=== PATIENT | female | born 1935 | race Caucasian/White ===

== ENCOUNTER 2021-11-22 13:00 | Outpatient (CLI) | payer MEDICARE, OTHER, SELFPAY | END 2021-11-22 13:01 | disposition home or self-care (01) | LOC: SLEEP 11-23 13:01 | PROVIDERS: Family Provider Family Medicine; PCP Family Medicine; Visit Provider Clinical Nurse Specialist Adult Health | DX: J44.9 Chronic obstructive pulmonary disease, unspecified (principal) | CPT/HCPCS: 94762 ==

== ENCOUNTER 2021-12-15 14:29 | Outpatient (CLI) | payer MEDICARE, OTHER, SELFPAY ==
--- NOTE | 2021-12-15 14:46 | XR_ITS ---
WS: [id number] Right shoulder, 3 views, 12/15/2021 Clinical Data: PAIN IN R SHOULDER Comparison: None. Findings: No fractures or dislocations are seen. The AC joint is normal. The adjacent right clavicle, right sca pula and ribs are normal. The soft tissues are unremarkable. There is minimal irregularity of the greater tuberosity. 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
== END 2021-12-15 14:30 | disposition home or self-care (01) ==
PROVIDERS: Family Provider Family Medicine; PCP Family Medicine; Visit Provider Family Medicine
DX: M19.011 Primary osteoarthritis, right shoulder (principal)
CPT/HCPCS: 73030

== ENCOUNTER 2022-01-03 10:04 | Outpatient (CLI) | payer MEDICARE, OTHER, SELFPAY ==
--- NOTE | 2022-01-03 14:00 | PFTS_ITS ---
Date of Study:01/03/22 Date of Dictation:01/06/2022 MECHANICS: Postbronchodilator forced vital capacity (FVC) is reduced. Postbronchodilator forced expiratory volume in one second (FEV1) is severely reduced 42% FEV1/FVC is reduced. There is significant response to bronchodilators. FLOW VOLUME LOOP: Sloping of expiratory limb suggestive of severe airflow obstruction . LUNG VOLUMES: Not measured DIFFUSING CAPACITY FOR CARBON MONOXIDE: Not measured . INTERPRETATION: The prebronchodilator spirometry consistent with severe airflow obstruction which improved to moderate obstruction with bronchodilators. To further characterize-repeat pulmonary function test with lung volumes and gas transfer measurement. Please correlate clinically. MTDD
== END 2022-01-03 10:05 | disposition home or self-care (01) ==
PROVIDERS: PCP Family Medicine; Visit Provider Clinical Nurse Specialist Adult Health
DX: J44.9 Chronic obstructive pulmonary disease, unspecified (principal)
CPT/HCPCS: 94060; J7611

== ENCOUNTER 2022-05-30 09:15 | Outpatient (CLI) | payer MEDICARE, OTHER, SELFPAY ==
--- NOTE | 2022-05-30 09:24 | XR_ITS ---
WS: [id number] Exam: XR chest 2V* [id number] Date/Time of Exam: 05/30/2022 9:24 AM Reason For Exam: dyspnea/ cp Comparison 08/30/2007. The lungs are hyperinflated and clear. Normal cardiomediastinal silhouette. No pleural effusions. Ol d L1 compression fracture. XR/XR chest 2V* [id number] IMPRESSION: 1. Pulmonary hyperinflation which may indicate COPD. No acute cardiopulmonary f inding.
== END 2022-05-30 09:16 | disposition home or self-care (01) ==
LOC: RAD 09:18
PROVIDERS: PCP Family Medicine; Visit Provider Family Medicine
DX: R07.9 Chest pain, unspecified (principal); R06.00 Dyspnea, unspecified
CPT/HCPCS: 71046; 80053; 83880; 85025

== ENCOUNTER → 2022-07-13 10:44 | Outpatient (BNVA) | payer MEDICARE, OTHER, SELFPAY | PROVIDERS: PCP Family Medicine; Visit Provider Family Medicine | DX: R53.83 Other fatigue (principal); J44.9 Chronic obstructive pulmonary disease, unspecified | CPT/HCPCS: 80053; 84443; 85025; 86140 ==

== ENCOUNTER 2022-09-14 12:31 | Emergency (ER) | payer MEDICARE, OTHER, SELFPAY ==
[2022-09-14 12:39] VITALS: BP 98/59; PULSE 98; RESP 28; TEMP 36.5; O2SAT 99; BMI 23.8
--- NOTE | 2022-09-14 12:51 | XRR_ITS ---
PROCEDURE INFORMATION: Exam: XR Chest Exam date and time: 09/14/2022 12:59 PM Age: 86 years old Clinical indication: Pain; Angina pectoris; Additional info: Chest pain TECHNIQUE: Imaging protocol: Radiologic exam of the chest. Views: 1 view. COMPARISON: CR XR chest 2V* [id number] 05/30/2022 9:25 AM FINDINGS: Lungs: Unremarkable. No consolidation. Pleural spaces: Unremarkable. No pleural effusion. No pneumothorax. Heart/Mediastinum: Unremarkable. No cardiomegaly. Bones/joints: There is a chronic rib fracture in the right 8th rib this finding was seen on prior examination and appears similar XR/XR chest 1V portable [id number] IMPRESSION: No acute findings. Chronic right rib fracture
--- NOTE | 2022-09-14 12:51 | ECG_ITS ---
[facility] Test Date: 2022-09-14 Pat Name: Emily Pratt Department: Room: Gender: Female Shipping Receiving Manager: : 1935 Requested By: Dennis Li Order Number: [id number] Dillon MD: Shahla Watkins M.D. Measurements Intervals [place] Rate: 84 P: 66 ME: 112 QRS: 80 QRSD: 90 T: 79 QT: 365 QTc: 433 Interpretive Statements SINUS RHYTHM WITH SHORT ME INTERVAL MODERATE ST DEPRESSION [0.05+ mV ST DEPRESSION] INTERPRETATION BASED ON A DEFAULT AGE OF 40 YEARS No previous ECG available for comparison Electronically Signed On 09-14-2022 20:42:29 SURGERY SCHEDULER by Shahla Watkins M.D. [email or web address])/[id number] f
--- NOTE | 2022-09-14 13:38 | W.ED.CHESTPA ---
HPI - Chest Pain General: Chief Complaint: Chest Pain Stated Complaint: chest pain Time Seen by Provider: 09/14/22 12:46 Source: patient Mode of arrival: ambulatory History of Present Illness: 86-year-old female presents emergency room complaining of shortness of breath and chest discomfort that she has had for several months. It seems to be getting worse recently. She has not noticed anything that exacerbates or relieves. Patient readily admits she has significant amount of anxiety. Diaphoresis nausea vomiting or diarrhea associated with no productive cough. MD complaint: chest pain Onset (ago): month(s) Timing of current episode: episodic Prior episodes: Yes Pain location: substernal Pain radiation: none Quality: aching and heaviness Relieving factors: nothing Exacerbating factors: nothing Associated symptoms: Deny abdominal pain, diaphoresis, dyspnea, fever(s), leg edema, nausea, palpitations, sense of impending doom, syncope or vomiting Treatment prior to arrival: none Review of Systems Const: Denies: fever(s), chills, fatigue, malaise or diaphoresis ENMT: Denies: throat pain, ear or mastoid pain, nasal discharge or nasal congestion Card: Reports: chest pain; Denies: palpitations, irregular heart rhythm, edema, swelling of feet/ankles or syncope Resp: Denies: dyspnea GI: Denies: abdominal pain, nausea or vomiting : Denies: flank pain, difficulty voiding, dysuria, urinary frequency or urinary urgency Skin/Breast: Denies: rash or pruritus PFS ED PFSH: Medical History COPD (chronic obstructive pulmonary disease) Fatigue Osteoarthritis of right shoulder Rotator cuff arthropathy of right shoulder Physical Exam Const: GENERAL APPEARANCE: cooperative and comfortable ORIENTATION/CONSCIOUSNESS: Yes awake, Yes oriented to person, Yes oriented to place and Yes oriented to time HENMT: COMMON NORMALS: normocephalic and atraumatic HEAD & SCALP: normocephalic and atraumatic Resp: COMMON NORMALS: normal respiratory effort, No retractions, No use of accessory muscles and clear to auscultation bilaterally AUSCULTATION: clear to auscultation bilaterally Cardio: COMMON NORMALS: regular rate, regular rhythm and No murmurs present (Cardio) RATE: regular rate RHYTHM: regular rhythm GI: COMMON NORMALS: Soft to palpation and No hepatosplenomegaly present AUSCULTATION: Yes normoactive bowel sounds PALPATION: Yes Soft to palpation, No Tenderness to palpation present (GI), No Guarding due to palpation present (GI) and Yes No hepatosplenomegaly present Extremity: COMMON NORMALS: normal to inspection, capillary refill normal, no clubbing, cyanosis or edema, no calf tenderness and no pedal edema Neuro: SENSORIUM/ORIENTATION: Yes oriented to person, Yes oriented to place and Yes oriented to time Skin: COMMON NORMALS: no rashes or lesions noted GENERAL SKIN EXAM: no rashes or lesions noted Course Vital Signs: Vital signs: Vital Signs Temperature 97.7 F 09/14/22 12:39 Pulse Rate 61 09/14/22 14:34 Respiratory Rate 17 09/14/22 15:31 Blood Pressure 153/57 09/14/22 15:31 Pulse Oximetry 92 09/14/22 15:31 Oxygen Delivery Me thod 09/14/22 15:31 MDM - Chest Pain Medical Decision Making EKG and cardiac enzymes are negative. Patient tells me that she has had 2 stress test in the last 4 years both of which were negative I do not see any documentation of it in her chart but may have been at another facility. In either event when I talked to her about follow-up from this visit we had advised her to get a Lexiscan sestamibi stress test. She she states due to her age and her previous experience these test she does not want to have these done. I would recommend that she take a baby aspirin daily and if she has further symptoms follow-up with Dr. Naylor. I also did start her on pantoprazole 40 mg daily Medical Records I reviewed the patient's medical records. Lab Data I reviewed the patient's lab results. 09/14/22 14:18 09/14/22 14:18 Radiology Impressions Chest X-Ray 09/14/22 12:51 IMPRESSION: No acute findings. Chronic right rib fracture Laboratory Results WBC 6.6 10^3/uL (4.0-10.0) 09/14/22 14:18 RBC 3.38 10^6/uL (4.1-5.3) L 09/14/22 14:18 Hgb 11.4 g/dL (11.5-15.3) L 09/14/22 14:18 Hct 33.6 % (37.0-47.0) L 09/14/22 14:18 MCV 99.4 fl (81-99) H 09/14/22 14:18 MCH 33.7 pg (28.0-34.0) 09/14/22 14:18 MCHC 33.9 g/dL (30.0-36.0) 09/14/22 14:18 RDW 12.1 % (12.1-15.1) 09/14/22 14:18 Plt Count 278 10^3/cmm (130-400) 09/14/22 14:18 MPV 10.1 fL (7.4-10.4) 09/14/22 14:18 Neut % (Auto) 74.4 % 09/14/22 14:18 Lymph % (Auto) 11.9 % 09/14/22 14:18 [place] % (Auto) 11.3 % 09/14/22 14:18 Eos % (Auto) 1.2 % 09/14/22 14:18 Baso % (Auto) 0.9 % 09/14/22 14:18 Neut # (Auto) 4.93 10^3/uL (1.8-7.7) 09/14/22 14:18 Lymph # (Auto) 0.8 10^3/uL (0.8-4.8) 09/14/22 14:18 [place] # (Auto) 0.8 10^3/uL (0.2-0.9) 09/14/22 14:18 Eos # (Auto) 0.1 10^3/uL (0.0-0.8) 09/14/22 14:18 Baso # (Auto) 0.1 10^3/uL (0.0-0.1) 09/14/22 14:18 Nucleated RBC % (auto) 0 % 09/14/22 14:18 Nucleated RBCs # 0.0 /100WBC 09/14/22 14:18 Sodium 133 mmol/L (136-145) L 09/14/22 14:18 Potassium 4.4 mmol/L (3.5-5.1) 09/14/22 14:18 Chloride 96 mmol/L (98-107) L 09/14/22 14:18 Carbon Dioxide 28 mmol/L (22-29) 09/14/22 14:18 Anion Gap 13.4 (5-19) 09/14/22 14:18 BUN 18 mg/dL (8-23) 09/14/22 14:18 Creatinine 1.0 mg/dL (0.5-0.9) H 09/14/22 14:18 GFR Calculation Not Reportable 09/14/22 14:18 Glucose 100 mg/dL (65-115) 09/14/22 14:18 Calculated Osmolality 278 mOsm/kg (285-295) L 09/14/22 14:18 Calcium 8.9 mg/dL (8.5-10.5) 09/14/22 14:18 Total Bilirubin 0.6 mg/dL (0.15-1.2) 09/14/22 14:18 AST 23 U/L (0-32) 09/14/22 14:18 ALT 13 U/L (0-33) 09/14/22 14:18 Alkaline Phosphatase 38 U/L (35-105) 09/14/22 14:18 Troponin T Baseline 12 ng/L (0-10) H 09/14/22 14:18 Troponin T 120 Minute 11.38 ng/L (0-10) H 09/14/22 15:45 Delta Troponin T -0.62 ABS# (0-10) L 09/14/22 15:45 Total Protein 6.4 g/dL (6.6-8.7) L 09/14/22 14:18 Albumin 4.2 g/dL (3.5-5.2) 09/14/22 14:18 Globulin 2.2 g/dL (1.3-4.6) 09/14/22 14:18 Discharge Plan Discharge Patient Disposition: Home Clinical Impression: Atypical chest pain Condition: Stable Prescriptions: New Protonix 40 mg tablet,delayed release (DR/EC) 40 mg PO DAILY 56 Days Qty: 60 0RF aspirin 81 mg tablet,delayed release (DR/EC) 81 mg PO DAILY Qty: 30 0RF No Action levothyroxine [Levoxyl] 75 mcg tablet 75 mcg PO DAILY cholecalciferol (vitamin D3) 10 mcg (400 unit) capsule 10 mcg PO BID Anoro Ellipta 62.5-25 mcg/actuation blister with device 1 inh inhalation DAILY Qty: 60 11RF paroxetine HCl [Paxil] 40 mg tablet 40 mg PO DAILY Qty: 90 3RF lidocaine [Lidoderm] 5 % adhesive patch,medicated 1 patch topical DAILY Qty: 30 11RF Rx Instructions: leave on most painful area for up to 12 hrs then take off spironolacton-hydrochlorothiaz 25-25 mg tablet 1 tab PO BID PRN (Reason: edema) Qty: 60 11RF albuterol sulfate 90 mcg/actuation HFA aerosol inhaler 2 puff inhalation Q4H PRN (Reason: shortness of breath or wheezing) Qty: 8.5 3RF (DME) Nebulizer machine See Rx Instructions .Route .MEDSUPPLY Qty: 1 0RF Rx Instructions: As directed (DME) nebulizers Misc See Rx Instructions .Route Qty: 1 0RF Rx Instructions: use with albuterol as ordered albuterol sulfate 2.5 mg /3 mL (0.083 %) solution for nebulization 2.5 mg inhalation QID PRN (Reason: shortness of breath or wheezing) Qty: 90 11RF alprazolam 0.5 mg tablet 0.25 mg PO TID PRN (Reason: anxiety) Tylenol Ex Str Rapid Release 500 mg Tablet 1,000 mg PO BID PRN (Reason: Pain) magnesium oxide 400 mg magnesium Tablet 400 mg PO DAILY Vitamin B-12 50 mcg Tablet 50 mcg PO DAILY Discharge Orders: Discharge ED (Routine); Ordered 09/14/22 Ordered By: Dennis Ott Referrals: Ralph Anderson MD [Primary Care Provider] - Discharge Diet: Usual diet Discharge Activity: Resume usual activity Patient Instructions: Opioid Safety, Pain Management Activity Restrictions/Additional Instructions: You were seen today for atypical chest pain that you described as having gone on for several months. Your cardiac enzymes and EKG were unremarkable. Recommend that you contact Dr. Naylor's office if you have further symptoms. Coding Level of Care Code ED Associate Biological Sales for Hernando Jung
[2022-09-14 14:34] VITALS: BP 134/54; PULSE 61; RESP 20; O2SAT 97
[2022-09-14 14:56] LABS: Basophils # 0.1 10^3/uL (0.0-0.1); Basophils % 0.9 %; Eosinophils # 0.1 10^3/uL (0.0-0.8); Eosinophils % 1.2 %; Hematocrit 33.6 % (37.0-47.0); Hemoglobin 11.4 g/dL (11.5-15.3); Lymphocytes # 0.8 10^3/uL (0.8-4.8); Lymphocytes % 11.9 %; Mean Corpuscular HGB Conc 33.9 g/dL (30.0-36.0); Mean Corpuscular Hemoglobin 33.7 pg (28.0-34.0); Mean Corpuscular Volume 99.4 fl (81-99); Mean Platelet Volume 10.1 fL (7.4-10.4); Monocytes # 0.8 10^3/uL (0.2-0.9); Monocytes % 11.3 %; Neutrophils # 4.93 10^3/uL (1.8-7.7); Neutrophils % 74.4 %; Nucleated Red Blood Cells % 0 %; Platelet Count 278 10^3/cmm (130-400); Red Blood Count 3.38 10^6/uL (4.1-5.3); Red Cell Distribution Width 12.1 % (12.1-15.1); White Blood Count 6.6 10^3/uL (4.0-10.0)
--- NOTE | 2022-09-14 15:11 | ECG_ITS ---
[facility] Test Date: 2022-09-14 Pat Name: Emily Pratt Department: Room: Gender: Female Industrial Technology Teacher: : 1935 Requested By: Dennis Li Order Number: [id number] Dillon MD: Shahla Watkins M.D. Measurements Intervals [place] Rate: 66 P: 61 IA: 200 QRS: 49 QRSD: 93 T: 70 QT: 408 QTc: 431 Interpretive Statements SINUS RHYTHM WITH OCCASIONAL VENTRICULAR PREMATURE COMPLEXES POSSIBLE RIGHT VENTRICULAR CONDUCTION DELAY [RSR (QR) IN V1/V2] Compared to ECG 09/14/2022 12:38:11 Ventricular premature complex(es) now present Short IA interval no longer present ST (T wave) deviation no longer present Electronically Signed On 09-14-2022 20:49:42 INTEGRATIVE MEDICINE PHYSICIAN by Shahla Watkins M.D. [id number]
[2022-09-14 15:13] LABS: Troponin(5th) Baseline 12 ng/L (0-10)
[2022-09-14 15:15] LABS: Alanine Aminotransferase 13 U/L (0-33); Albumin Level 4.2 g/dL (3.5-5.2); Alkaline Phosphatase 38 U/L (35-105); Anion Gap 13.4 (5-19); Aspartate Amino Transferase 23 U/L (0-32); Blood Urea Nitrogen 18 mg/dL (8-23); Calcium 8.9 mg/dL (8.5-10.5); Carbon Dioxide 28 mmol/L (22-29); Chloride 96 mmol/L (98-107); Globulin 2.2 g/dL (1.3-4.6); Glucose 100 mg/dL (65-115); Osmolality Calculated 278 mOsm/kg (285-295); Potassium 4.4 mmol/L (3.5-5.1); Sodium 133 mmol/L (136-145); Total Bilirubin 0.6 mg/dL (0.15-1.2); Total Protein 6.4 g/dL (6.6-8.7)
--- NOTE | 2022-09-14 15:24 | ECG_ITS ---
[facility] Test Date: 2022-09-14 Pat Name: Emily Pratt Department: Room: Gender: Female Hydrostatic Tubing Tester: : 1935 Requested By: Dennis Li Order Number: [id number] Dillon MD: Shahla Watkins M.D. Measurements Intervals [place] Rate: 82 P: 0 NV: 0 QRS: 85 QRSD: 89 T: 94 QT: 334 QTc: 391 Interpretive Statements ATRIAL FIBRILLATION SEPTAL MYOCARDIAL INFARCTION , PROBABLY OLD [40+ ms Q WAVE IN V1/V2] INTERPRETATION BASED ON A DEFAULT AGE OF 39 YEARS Compared to ECG 09/14/2022 15:11:26 Myocardial infarct finding now present Sinus rhythm no longer present Ventricular premature complex(es) no longer present Electronically Signed On 09-14-2022 20:49:53 KNOCKUP WORKER by Shahla Watkins M.D. [id number]
[2022-09-14 15:31] VITALS: BP 153/57; RESP 17; O2SAT 92
[2022-09-14 16:22] LABS: Troponin 5 2HR 11.38 ng/L (0-10)
[2022-09-14 16:25] LABS: Troponin 5 2HR Delta -0.62 ABS# (0-10)
== END 2022-09-14 17:30 | disposition home or self-care (01) ==
PROVIDERS: Emergency Provider Family Medicine; PCP Family Medicine
DX: R07.89 Other chest pain (principal); J44.9 Chronic obstructive pulmonary disease, unspecified
CPT/HCPCS: 36415; 71045; 80053; 84484; 85025; 93005; 99285

== ENCOUNTER → 2023-04-24 14:02 | Outpatient (BNVA) | payer MEDICARE, OTHER, SELFPAY | PROVIDERS: PCP Family Medicine; Visit Provider Family Medicine | DX: M19.90 Unspecified osteoarthritis, unspecified site (principal); R53.83 Other fatigue; J44.9 Chronic obstructive pulmonary disease, unspecified | CPT/HCPCS: 80053; 84443; 85025 ==